=== PATIENT | male | born 1955 | race Caucasian/White ===

== ENCOUNTER → 2016-05-15 | Day surgery (SDC) | payer BC ==
[~2016-05-15] VITALS: Ht 185.4 cm; Wt 90.7 kg
[~2016-05-15] MED LIST: ASPIRIN EC81 MG PO; CO Q-10100 MG PO; COREG6.25 MG PO; CRESTOR10 MG PO; OMEGA 3 FISH O1 EACH PO; TRIACET 0.1 CRE15 GM TOP; VASOTEC5 MG PO; VITAMIN B-121000 MCG PO; VITAMIN C1000 MG PO; VITAMIN D1000 UNI1 PO
== END | disposition disaster alternative care site (69) ==
LOC: GPOC 05-14 15:00 → GEND 07:19 → GPOC 07:30
PROC: 0DJD8ZZ Inspection of Lower Intestinal Tract, Via Natural or Artificial Opening Endoscopic (ICD-10-PCS; principal; 2016-05-15)
DX: Z12.11 Encounter for screening for malignant neoplasm of colon (principal); K64.4 Residual hemorrhoidal skin tags; I10 Essential (primary) hypertension; E78.00 Pure hypercholesterolemia, unspecified; I25.10 Atherosclerotic heart disease of native coronary artery without angina pectoris; Z95.1 Presence of aortocoronary bypass graft; Z98.890 Other specified postprocedural states
CPT/HCPCS: J2001; J7030